=== PATIENT | female | born 1955 | race Caucasian/White ===

== ENCOUNTER 2018-06-28 08:07 | Emergency (ER) | payer MEDICAID ==
[~2018-06-28] VITALS: Ht 165.1 cm; Wt 99.6 kg
[2018-06-28 08:15] VITALS: Ht 165.1 cm; Wt 99.6 kg
[2018-06-28] MEDS ORDERED: KETOROLAC 30 MG INJ IM STA (08:29)
[2018-06-28] MEDS ORDERED: HYDROCODONE/APAP (5/325) TAB PO ONE (08:30)
[2018-06-28] MEDS ORDERED: CYCL10TA7 PO (09:45)
[2018-06-28] MEDS ORDERED: NAPR-985 PO (09:45)
[2018-06-28] MEDS ORDERED: TRAM50TA2 PO (09:45)
--- NOTE | 2018-06-28 10:06 | ERD ---
ER Documentation Chief Complaint Chief Complaint RT KNEE PAIN X2 MONTHS W/ HX RT KNEE SX 5 YEARS AGO HPI 62-year-old female presents with low back pain rating to the right leg for the last 1-2 months. She denies any history of trauma or inciting events. She has a history of right knee pain and had meniscal surgery 5 years ago. She denies any weakness, bowel or bladder incontinence, fevers, urinary complaints. ROS All systems reviewed and are negative except as per history of present illness. Medications Home Meds Active Scripts Naproxen* (Naprosyn*) 500 Mg Tablet, 500 MG PO BID PRN for PAIN AND/OR INFLAMMATION, #30 TAB Prov:JAIEM ROSS MD 06/28/18 Cyclobenzaprine Hcl* (Cyclobenzaprine Hcl*) 10 Mg Tablet, 10 MG PO TID, #20 TAB Prov:JAIME ROSS MD 06/28/18 Tramadol HCl (Tramadol HCl) 50 Mg Tablet, 50 MG PO Q4 PRN for PAIN, #20 TAB Prov:JAIME ROSS MD 06/28/18 Allergies Allergies: Coded Allergies: Penicillins (Verified Allergy, Intermediate, RASH, 06/28/18) PMhx/Soc Hx Alcohol Use: No Hx Substance Use: No Hx Tobacco Use: No FmHx Family History: No diabetes, No coronary disease, No other Physical Exam Vitals Vital Signs Date Temp Pulse Resp B/P (MAP) Pulse Ox O2 O2 Flow FiO2 Time Delivery Rate 06/28/18 98.4 63 16 154/79 100 08:15 (104) Physical Exam Const: No acute distress Head: Atraumatic Eyes: Normal Conjunctiva ENT: Normal External Ears, Nose and Mouth. Neck: Full range of motion. No meningismus. Resp: Clear to auscultation bilaterally Cardio: Regular rate and rhythm, no murmurs Abd: Soft, non tender, non distended. Normal bowel sounds Skin: No petechiae or rashes Back: No midline or flank tenderness. Tender right L4-5 paraspinous area. Positive straight leg raise. Mild generalized tenderness right knee joint without effusion, warmth, erythema no calf swelling or Homans sign. Patient is ambulatory with discomfort but no deficits or weakness. Ext: No cyanosis, or edema Neur: Awake and alert Psych: Normal Mood and Affect Results 24 hrs Current Medications Medications Dose Sig/Sophy Start Time Status Last (Trade) Ordered Route PRN Stop Time Admin Dose Reason Admin Ketorolac 30 mg ONCE STAT 06/28/18 DC 06/28/18 Tromethamine IM 08:29 06/28/18 08:42 (Toradol) 08:30 1 tab ONCE ONCE 06/28/18 DC 06/28/18 Acetaminophen PO 08:30 06/28/18 08:41 / 08:31 Hydrocodone Bitart (Jackson (5/325)) Procedures/MDM X-ray LS-Spine 3V Interpreted by me: Bones: No fracture, or lytic lesions Joints: No dislocation Foreign body: None. Impression-degenerative changes and 3 mm anterior spondylolisthesis at L4-L5. No acute fracture dislocation. X-ray Knee 3V Interpreted by me: Bones: No fracture Joints: No dislocation Foreign body: None. Impression-degenerative changes of the medial compartment of the right knee x-ray. She presents with low back pain rating to the right lower extremity consistent with sciatica as well as chronic right knee pain with findings of osteoarthritis. She has no signs or symptoms of septic arthritis, cauda equina syndrome, fracture, dislocation, DVT, additional concerning signs or symptoms. We will treat with tramadol, Naprosyn, Flexeril, recommendations for orthopedic and primary care follow-up and return precautions for fevers, redness, new worsening symptoms of back pain or with primary care doctor. The patient was stable with no new complaints during the ER course. Clinically, there is no current evidence to suggest meningitis, sepsis, acute abdomen, pneumonia, stroke, acute coronary syndrome, pulmonary embolism, aortic dissection or any other emergent condition appearing to require further evaluation or hospitalization. Patient counseled regarding my diagnostic impression and care plan. Prior to discharge all questions answered. Pt agrees with treatment plan and understands strict return precautions. Pt is instructed to follow up with primary care provider within 24-48 hours. Precautionary instructions provided including instructions to return to the ER if not improving or for any worsening or changing symptoms or concerns. Departure Diagnosis: Primary Impression: Sciatic hernia Additional Impression: Knee pain Chronicity: acute Laterality: right Qualified Codes: M25.561 - Pain in right knee Condition: Stable Patient Instructions: Knee Pain, Uncertain Cause, Back Pain W/ Sciatica Referrals: PORSHA MOULTON MD Additional Instructions: hay artritis en espalda y rodilla. Va al wells doctor/ specialista para mas evaluacon en el proximo semana. posiblemente necesita autorizado de wells doctor primario para specialista. Regresa para fiebre, o mas o nueva simptomas. JAIME ROSS MD Jun 28, 2018 10:06
== END 2018-06-28 10:23 | disposition home or self-care (01) ==
LOC: FTE 08:07
DX: K46.9 Unspecified abdominal hernia without obstruction or gangrene (principal)
CPT/HCPCS: 72100; 73562; 96372; J1885; Z7502; Z7610